=== PATIENT | female | born 1970 | race Caucasian/White ===

== ENCOUNTER 2018-08-15 11:29 | Emergency (ER) | payer SELFPAY ==
--- NOTE | 2018-08-15 11:52 | ER Document Report ---
ED General - General Chief Complaint: Pain All Over Stated Complaint: ALL OVER BODY ACHE Time Seen by Provider: 08/15/18 11:45 Notes: Patient is a 47-year-old female that presents to the emergency department for chief complaint of methadone withdrawal symptoms. Patient states she has been having generalized body aches, joint aches, and anxiousness, she is on methadone 125 mg daily, states she usually gets it from [place], [place] however she has been visiting with family over the weekend, which she usually does, but has not been able to get back to [place], she usually goes back Tuesday night, so she is missed her Tuesday and Tuesday dose for today, and states she is having significant withdrawal symptoms. She is been having mild headaches, and nausea, but denies having any vomiting. She denies noting any fevers, chills, chest pain, shortness of breath or difficulty breathing. Past Medical History: Opiate abuse history Past Surgical History: Hysterectomy Social History: Admits to smoking cigarettes, denies alcohol use, former prescription opiate abuse Family History: Reviewed and noncontributory for presenting illness Allergies: Reviewed, see documented allergy list. REVIEW OF SYSTEMS: Other than noted above, the 12 point review of systems was reviewed with the patient and were negative, all pertinent findings are included in the HPI. PHYSICAL EXAMINATION: Vital signs reviewed, nursing noted reviewed. GENERAL: Well-appearing, well-nourished and appears uncomfortable HEAD: Atraumatic, normocephalic. EYES: Eyes appear normal, extraocular movements intact, sclera anicteric, conjunctiva are normal. ENT: nares patent, oropharynx clear without exudates. Moist mucous membranes. NECK: Normal range of motion, supple without lymphadenopathy LUNGS: Breath sounds clear to auscultation bilaterally and equal. No wheezes rales or rhonchi. HEART: Regular rate and rhythm without murmurs ABDOMEN: Soft, nontender, normoactive bowel sounds. No rebound, guarding, or rigidity. No masses appreciated. EXTREMITIES: Generalized tenderness to the bilateral upper and lower extremities , good range of motion, no pitting or edema. NEUROLOGICAL: No focal neurological deficits. Moves all extremities spontaneously Motor and sensory grossly intact on exam. PSYCH: Anxious, but answering questions appropriately SKIN: Warm, Dry, normal turgor, no rashes or lesions noted on exposed skin TRAVEL OUTSIDE OF THE U.S. IN LAST 30 DAYS: No - Related Data Allergies/Adverse Reactions: No Known Allergies Allergy (Verified 08/15/18 11:30) Past Medical History - Social History Smoking Status: Current Every Day Smoker Frequency of alcohol use: None Drug Abuse: None Family History: Reviewed & Not Pertinent Patient has suicidal ideation: No Patient has homicidal ideation: No Renal/ Medical History: Denies: Hx Peritoneal Dialysis Past Surgical History: Reports: Hx Cardiac Surgery - x1, Hx Hysterectomy Physical Exam - Vital signs Vitals: Temp Pulse Resp BP Pulse Ox 98.4 F 86 24 H 116/63 97 08/15/18 11:34 08/15/18 11:34 08/15/18 11:34 08/15/18 11:34 08/15/18 11:34 Course - Re-evaluation Re-evalutation: Patient seen and examined, vital signs reviewed. Patient symptoms seem most consistent with methadone withdrawal, with generalized body aches and pains, nausea. I did call the patient's methadone clinic, in [place], [place], they confirm the dosing the patient's methadone of 125 mg daily, they advised me that the patient should call the [place] methadone clinic, at [phone] , that the patient should call to set up what they described as visitors/Guest methadone dosing, so that she can get her medication and not have to come to the emergency department. I discussed this with the patient, at length, that she does not need to come to the emergency department to receive her methadone, and this is an inappropriate use of the emergency department, she stated that she was told it could take 4 days to get the medication, however when I discussed this with the methadone clinic she sees in [place], they stated that they can get this as soon as tomorrow. Patient's EKG was reviewed, her QTC was just over 500, at the limits where methadone will be considered contraindicated, I gave her her dose today, but advised her, that she may need to be switched on to new medications, and she needs to advise the methadone clinic, that she will need a repeat EKG, which she was agreeable to. - Vital Signs Vital signs: Temp Pulse Resp BP Pulse Ox 98.4 F 108 H 20 112/80 98 08/15/18 13:42 08/15/18 13:42 11/13/18 13:42 08/15/18 13:42 08/15/18 13:42 - EKG Interpretation by Me Additional EKG results interpreted by me: EKG demonstrates sinus rhythm with a ventricular rate of 72 bpm, normal axis, QTC 508 ms, no evidence of acute ischemia on this EKG. No prior for comparison. Discharge - Discharge Clinical Impression: Methadone withdrawal Condition: Stable Disposition: HOME, SELF-CARE Additional Instructions: Please follow-up with the methadone clinic in [place], their phone number is [phone], the methadone clinic you follow with in [place], stated that they could provide your medication through this clinic, you need to call them to arrange this. Until you get back on the medication, you can experience racing heart, nausea, vomiting, diarrhea which are all consistent with methadone withdrawal symptoms.
[2018-08-15] MEDS ORDERED: METHADONE HCL 10 MG TABLET PO ONE ×2 (11:58→14:00)
[2018-08-15 13:44] VITALS: BP 112/80
--- NOTE | 2018-08-16 07:13 | EKG REPORT ---
SEVERITY:- ABNORMAL ECG - SINUS RHYTHM SHORT OH INTERVAL, ACCELERATED AV CONDUCTION ABNRM R PROG, CONSIDER ASMI OR LEAD PLACEMENT BORDERLINE T ABNORMALITIES, DIFFUSE LEADS BORDERLINE PROLONGED QT INTERVAL : Confirmed by: Saba Dwyer 16-Aug-2018 07:13:09
== END 2018-08-15 13:44 | disposition home or self-care (01) ==
LOC: ER 11:29
DX: F11.23 Opioid dependence with withdrawal (principal); T40.3X6A Underdosing of methadone, initial encounter; Z91.128 Patient's intentional underdosing of medication regimen for other reason; Z91.14 Patient's other noncompliance with medication regimen; R51 Headache; R11.0 Nausea; M25.50 Pain in unspecified joint; F17.210 Nicotine dependence, cigarettes, uncomplicated
CPT/HCPCS: 93005; 93010; 99283

== ENCOUNTER 2019-08-31 10:17 | Emergency (ER) | payer SELFPAY ==
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
[2019-08-31] MEDS ORDERED: NORMAL SALINE 1000 ML 1,000 ML IV ONE ×2 (11:26→12:00)
--- NOTE | 2019-08-31 11:50 | RADIOLOGY REPORT (SQ) ---
EXAM DESCRIPTION: FOREARM RIGHT COMPLETED DATE/TIME: 08/31/2019 11:12 am REASON FOR STUDY: pain s/p fall + distal deformity COMPARISON: None. NUMBER OF VIEWS: Two views. TECHNIQUE: Two radiographic images acquired of the right forearm, including elbow and wrist in at le ast one projection. LIMITATIONS: None. FINDINGS: MINERALIZATION: Normal. BONES: Acute comminuted distal right radius metaphysis and distal right ulna metaphysis fractures. D orsal angulation at the fracture sites. Small acute avulsion ulnar styloid. Carpal bones, proximal metacarpals, proximal radius and ulna, distal humerus are intact. Radiocarpal joint alignment, intercarpal joints are intact. SOFT TISSUES: Diffuse right wrist soft tissue swelling. No soft tissue gas or radiopaque foreign bod y. OTHER: No other significant finding. IMPRESSION: Acute comminuted distal right radius metaphysis and distal right ulna metaphysis fractur es. Dorsal angulation at the fracture sites. Small acute avulsion ulnar styloid. TECHNICAL DOCUMENTATION: JOB ID: [id number] [employer]- All Rights Reserved Reading location - IP/workstation name: [email or web address]
[2019-08-31] MEDS ORDERED: FENTANYL CITRATE INJ/PF 100 MCG/2 ML AMPUL IV ONE ×2 (11:51→13:46)
--- NOTE | 2019-08-31 11:51 | RADIOLOGY REPORT (SQ) ---
EXAM DESCRIPTION: HAND RIGHT 3 VIEWS COMPLETED DATE/TIME: 08/31/2019 11:12 am REASON FOR STUDY: pain s/p fall COMPARISON: None. EXAM PARAMETERS: NUMBER OF VIEWS: Three views. TECHNIQUE: AP, lateral and oblique radiographic images acquired of the right hand. LIMITATIONS: None. FINDINGS: MINERALIZATION: Normal. BONES: Acute comminuted distal right radius metaphysis and distal right ulna metaphysis fractures. Do rsal angulation at the fracture sites. Small acute avulsion ulnar styloid. JOINTS: No effusions. SOFT TISSUES: No soft tissue swelling. No foreign body. OTHER: No other significant finding. IMPRESSION: Acute comminuted distal right radius metaphysis and distal right ulna metaphysis fractur es. Dorsal angulation at the fracture sites. Small acute avulsion ulnar styloid. . TECHNICAL DOCUMENTATION: JOB ID: [id number] [employer].- All Rights Reserved Reading location - IP/workstation name: [email or web address]
--- NOTE | 2019-08-31 11:52 | RADIOLOGY REPORT (SQ) ---
EXAM DESCRIPTION: HUMERUS RIGHT COMPLETED DATE/TIME: 08/31/2019 11:12 am REASON FOR STUDY: pain s/p fall COMPARISON: None. NUMBER OF VIEWS: Two views. TECHNIQUE: Two radiographic images were acquired of the right humerus to include elbow and shoulder in at least one projection. LIMITATIONS: Nonstandard radiographic positioning at the elbow. If there is clinical suspicion for radial head fracture, four view dedicated right elbow films are recommended FINDINGS: MINERALIZATION: Normal. BONES: No acute fracture or dislocation. No worrisome bone lesions. SOFT TISSUES: No obvious swelling or foreign body. OTHER: No other significant finding. IMPRESSION: NEGATIVE STUDY OF THE RIGHT HUMERUS. NO RADIOGRAPHIC EVIDENCE OF ACUTE INJURY. TECHNICAL DOCUMENTATION: JOB ID: [id number] [employer]- All Rights Reserved Reading location - IP/workstation name: [email or web address]
[2019-08-31] MEDS ORDERED: ETOMIDATE INJ/PF 20 MG/10 ML SDV IV ONE (12:00)
[2019-08-31 14:22] VITALS: BP 114/79
--- NOTE | 2019-08-31 14:55 | RADIOLOGY REPORT (SQ) ---
EXAM DESCRIPTION: WRIST RIGHT 2 VIEWS COMPLETED DATE/TIME: 08/31/2019 2:25 pm REASON FOR STUDY: post reduction COMPARISON: 08/31/2019 NUMBER OF VIEWS: Two views. TECHNIQUE: AP and lateral radiographic images acquired of the right wrist. LIMITATIONS: None. FINDINGS: MINERALIZATION: Normal. BONES: Status post closed reduction of previously described distal radius and ulna fractures. The fr acture fragments demonstrate improved alignment. SOFT TISSUES: Soft tissue swelling is demonstrated. OTHER: No other significant finding. IMPRESSION: Status post closed reduction of distal radius and ulna fractures without evidence of com plication. TECHNICAL DOCUMENTATION: JOB ID: [id number] [employer]- All Rights Reserved Reading location - IP/workstation name: [email or web address]
== END 2019-08-31 15:03 | disposition home or self-care (01) ==
LOC: ER 10:17
DX: S62.101A Fracture of unspecified carpal bone, right wrist, initial encounter for closed fracture (principal); S52.591A Other fractures of lower end of right radius, initial encounter for closed fracture; S52.691A Other fracture of lower end of right ulna, initial encounter for closed fracture; Y08.89XA Assault by other specified means, initial encounter; F17.200 Nicotine dependence, unspecified, uncomplicated
CPT/HCPCS: 96376; 99283; 96361; 99152; 96374; 73090; 73130; 73060; 73100; 25605; J3010; J7030; J3490

== ENCOUNTER 2019-09-27 16:13 | Emergency (ER) | payer SELFPAY ==
[2019-09-27] MEDS ORDERED: HYDROCODONE/ACETAMINOPHEN 5-325 MG (6 TAB/ER DISP) PO PRN (18:15)
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
[2019-09-27 19:49] VITALS: BP 99/61
== END 2019-09-27 19:41 | disposition home or self-care (01) ==
LOC: ER 16:13
DX: M79.601 Pain in right arm (principal); F17.200 Nicotine dependence, unspecified, uncomplicated; Z90.710 Acquired absence of both cervix and uterus
CPT/HCPCS: 99283